=== PATIENT | male | born 1935 | race Caucasian/White ===

== ENCOUNTER 2023-05-11 13:05 | Outpatient (OUT) | payer MEDICARE, MEDICAID, SELFPAY ==
[2023-05-11 13:21] LABS: Basophils Absolute Auto 0.1 10^3/uL (0.0-0.1); Basophils Percent Auto 0.6 % (0.2-2.0); Eosinophils Absolute Auto 0.4 10^3/uL (0.0-0.7); Eosinophils Percent Auto 4.7 % (0.9-7.0); Hematocrit 36.9 % (42.0-54.0); Hemoglobin 11.9 g/dL (14.0-18.0); Immature Granulocytes Abs Auto 0.06 10^3/uL (0.00-0.03); Immature Granulocytes Pct Auto 0.6 % (0.0-0.5); Lymphocytes Absolute Auto 1.1 10^3/uL (1.2-3.8); Lymphocytes Percent Auto 11.4 % (20.5-60.0); Mean Corpuscular HGB Conc 32.2 g/dL (29.9-35.2); Mean Corpuscular Hemoglobin 31.1 pg (25.9-34.0); Mean Corpuscular Volume 96.3 fL (80.0-94.0); Mean Platelet Volume 10.3 fL (9.5-13.5); Monocytes Absolute Auto 0.6 10^3/uL (0.3-0.8); Monocytes Percent Auto 6.1 % (1.7-12.0); Neutrophils Absolute Auto 7.1 10^3/uL (1.4-6.5); Neutrophils Percent Auto 76.6 % (43.0-75.0); Platelet Count 197 10^3/uL (150-450); Red Blood Count 3.83 10^6/uL (4.70-6.10); Red Cell Distribution Width 12.1 % (11.0-15.0); White Blood Count 9.3 10^3/uL (4.0-11.0)
[2023-05-11 14:24] LABS: Alanine Aminotransferase 22 U/L (16-63); Albumin Globulin Ratio 1.1; Albumin Level 3.3 g/dL (3.4-5.0); Alkaline Phosphatase 101 U/L (46-116); Anion Gap 14.4; Aspartate Amino Transferase 18 U/L (15-37); BUN Creatinine Ratio 13.9; Bilirubin Total 0.6 mg/dL (0.2-1.0); Calcium 8.8 mg/dL (8.5-10.1); Carbon Dioxide 23.9 mmol/L (21.0-32.0); Chloride 106 mmol/L (98-107); Estimated GFR (African America 39 (>=60); Estimated GFR (Non-African Ame 32 (>=60); Globulin 3.1 g/dL; Glucose 207 mg/dL (74-106); Potassium 4.3 mmol/L (3.5-5.1); Sodium 140 mmol/L (136-145); Total Protein 6.4 g/dL (6.4-8.2)
== END 2023-05-11 13:06 ==
PROVIDERS: PCP Family Medicine; Visit Provider Internal Medicine Interventional Cardiology
DX: I25.10 Atherosclerotic heart disease of native coronary artery without angina pectoris (principal)
CPT/HCPCS: 36415; 80053; 85025